=== PATIENT | female | born 1950 | race Caucasian/White ===

== ENCOUNTER → 2019-12-12 08:39 | Outpatient (BNVA) | payer MEDICAID, SELFPAY | PROVIDERS: Family Provider Nurse Practitioner Family; PCP Nurse Practitioner Family; Visit Provider Nurse Practitioner | DX: E55.9 Vitamin D deficiency, unspecified (principal); J44.9 Chronic obstructive pulmonary disease, unspecified; M79.7 Fibromyalgia; Z13.6 Encounter for screening for cardiovascular disorders | CPT/HCPCS: 80053; 80061; 82306; 84443 ==

== ENCOUNTER → 2020-04-18 11:25 | Outpatient (BNVA) | payer MEDICAID, SELFPAY | PROVIDERS: Family Provider Nurse Practitioner Family; PCP Nurse Practitioner; Visit Provider Nurse Practitioner | DX: M79.7 Fibromyalgia (principal); E55.9 Vitamin D deficiency, unspecified; M25.511 Pain in right shoulder; Z79.899 Other long term (current) drug therapy | CPT/HCPCS: 73030; 80053; 82306; 84443; 85025 ==

== ENCOUNTER → 2020-11-26 09:14 | Outpatient (BNVA) | payer MEDICAID, SELFPAY | PROVIDERS: Family Provider Nurse Practitioner Family; PCP Nurse Practitioner; Visit Provider Nurse Practitioner | DX: M79.7 Fibromyalgia (principal); Z13.6 Encounter for screening for cardiovascular disorders; E55.9 Vitamin D deficiency, unspecified; Z79.899 Other long term (current) drug therapy | CPT/HCPCS: 80053; 80061; 84443; 85025 ==

== ENCOUNTER → 2021-07-08 08:21 | Outpatient (BNVA) | payer MEDICAID, SELFPAY | PROVIDERS: Family Provider Nurse Practitioner Family; PCP Nurse Practitioner; Visit Provider Nurse Practitioner | DX: E55.9 Vitamin D deficiency, unspecified (principal); J43.1 Panlobular emphysema; M79.7 Fibromyalgia; R05.9 Cough, unspecified | CPT/HCPCS: 80053; 85025 ==

== ENCOUNTER → 2022-02-24 09:09 | Outpatient (BNVA) | payer MEDICAID, SELFPAY | PROVIDERS: Family Provider Nurse Practitioner Family; PCP Nurse Practitioner; Visit Provider Nurse Practitioner | DX: J43.1 Panlobular emphysema (principal); M79.7 Fibromyalgia; R05.9 Cough, unspecified; E55.9 Vitamin D deficiency, unspecified | CPT/HCPCS: 71046 ==

== ENCOUNTER → 2022-03-24 08:57 | Outpatient (BNVA) | payer MEDICAID, SELFPAY | PROVIDERS: Family Provider Nurse Practitioner Family; PCP Nurse Practitioner; Visit Provider Nurse Practitioner | DX: M79.7 Fibromyalgia (principal); J43.1 Panlobular emphysema; Z13.6 Encounter for screening for cardiovascular disorders; E55.9 Vitamin D deficiency, unspecified | CPT/HCPCS: 80053; 80061; 84443; 85025 ==

== ENCOUNTER → 2022-07-30 09:29 | Outpatient (BNVA) | payer MEDICAID, SELFPAY | PROVIDERS: Family Provider Nurse Practitioner Family; PCP Nurse Practitioner; Visit Provider Nurse Practitioner | DX: M51.36 Other intervertebral disc degeneration, lumbar region (principal); M47.896 Other spondylosis, lumbar region | CPT/HCPCS: 72100; 73502 ==

== ENCOUNTER → 2022-09-03 08:30 | Outpatient (BNVA) | payer MEDICAID, SELFPAY | PROVIDERS: Family Provider Nurse Practitioner Family; PCP Nurse Practitioner; Visit Provider Nurse Practitioner | DX: M79.7 Fibromyalgia (principal); E78.2 Mixed hyperlipidemia; E55.9 Vitamin D deficiency, unspecified | CPT/HCPCS: 80053; 80061; 82306; 84443 ==

== ENCOUNTER → 2023-02-18 09:01 | Outpatient (BNVA) | payer MEDICAID, SELFPAY | PROVIDERS: Family Provider Nurse Practitioner Family; PCP Nurse Practitioner; Visit Provider Nurse Practitioner | DX: J43.1 Panlobular emphysema (principal); G47.00 Insomnia, unspecified; M79.7 Fibromyalgia; J44.9 Chronic obstructive pulmonary disease, unspecified; J44.1 Chronic obstructive pulmonary disease with (acute) exacerbation; E55.9 Vitamin D deficiency, unspecified | CPT/HCPCS: 80053; 82306 ==

== ENCOUNTER 2023-05-29 09:36 | Outpatient (CLI) | payer MEDICAID, SELFPAY ==
--- NOTE | 2023-05-29 10:00 | CT_ITS ---
WS: [id number] CT chest wo con [id number] HISTORY: J43.1 - Panlobular emphysema TECHNIQUE: Axial imaging performed through the thorax. Coronal and sagittal reformats are submitted. All CT scans at [facility] use at least one of these dose optimization techniques: automated exposure control; mA and/or kV adjustment per patient size (includes targeted exams where dose is mat ched to clinical indication); or iterative reconstruction. CONTRAST: None DLP: 461.07 mGy.cm COMPARISON: 11/06/2005 Lungs and central airway: Marked hyperinflation. Centrilobular emphysema. New area of linear atelecta sis or scar in the anterior RIGHT middle lobe. There is a tiny subpleural nodule measuring 5 mm in th e posterior RIGHT lung near the superior major fissure. New irregular spiculation in the LEFT lower l obe measures approximately 9 x 11 mm. This may be focal area of pneumonitis but early neoplasm is not excluded. This is a new finding since the prior study from 2005. Pleura: Normal. No pleural effusion. Heart and pericardium: Mild cardiomegaly. Coronary artery calcifications. Mediastinum and mayi: No adenopathy identified on this unenhanced exam. Vessels: Mildly dilated pulmonary artery. Ectatic mild atherosclerosis aorta. Chest wall and lower neck: No soft tissue masses. Upper abdomen: Very mild thickening of the LEFT adrenal gland. Suspect a small adenoma measuring appr oximately 10 mm. Mild suprarenal aortic atherosclerotic disease. Hepatic granulomata. Splenic granulo kimbrough. Moderate hiatal hernia. Osseous structures: No destructive process. IMPRESSION: 1. Irregular, slightly spiculated nodule LEFT lower lobe measures 9 x 11 mm. Early neoplasm versus s car or pneumonitis. Recommend follow-up chest CT in 3 months. 2. Subsegmental atelectasis in the anterior RIGHT middle lobe can also be evaluated in 3 months on t he follow-up CT. 3. No mediastinal or hilar adenopathy on this unenhanced exam. 4. Mild pulmonary hypertension. 5. Marked centrilobular emphysema. 6. LEFT adrenal 10 mm adenoma.
== END 2023-05-29 09:37 | disposition home or self-care (01) ==
LOC: RAD 09:36
PROVIDERS: PCP Nurse Practitioner; Visit Provider Nurse Practitioner
DX: J98.11 Atelectasis (principal); J43.2 Centrilobular emphysema; R91.1 Solitary pulmonary nodule; F17.210 Nicotine dependence, cigarettes, uncomplicated; D35.02 Benign neoplasm of left adrenal gland; I27.20 Pulmonary hypertension, unspecified
CPT/HCPCS: 71250

== ENCOUNTER → 2023-08-05 08:38 | Outpatient (BNVA) | payer MEDICAID, SELFPAY | PROVIDERS: PCP Nurse Practitioner; Visit Provider Nurse Practitioner | DX: J43.1 Panlobular emphysema (principal); I73.9 Peripheral vascular disease, unspecified; M79.7 Fibromyalgia; G47.00 Insomnia, unspecified; J44.9 Chronic obstructive pulmonary disease, unspecified; F41.8 Other specified anxiety disorders; E78.2 Mixed hyperlipidemia | CPT/HCPCS: 80053; 80061; 84443 ==

== ENCOUNTER 2023-08-31 10:38 | Outpatient (CLI) | payer MEDICAID, SELFPAY ==
--- NOTE | 2023-08-31 11:00 | CT_ITS ---
WS: [id number] CT chest wo con [id number] HISTORY: R91.1 - Solitary pulmonary nodule TECHNIQUE: Axial imaging performed through the thorax. Coronal and sagittal reformats are submitted. All CT scans at [facility] use at least one of these dose optimization techniques: automated exposure control; mA and/or kV adjustment per patient size (includes targeted exams where dose is mat ched to clinical indication); or iterative reconstruction. CONTRAST: Omnipaque 350; 100 mL IV. DLP: 343.36 mGy.cm COMPARISON: 05/29/2023 Lungs and central airway: Hyperexpanded lungs from emphysema. The recently described spiculated nodul e in the LEFT lower lobe has completely resolved. Atelectasis in the RIGHT middle lobe is also nearly completely resolved. There is minimal groundglass attenuation remaining. No new or enlarging pulmona ry mass or nodule. Pleura: Normal. No pleural effusion. Heart and pericardium: Normal size heart with no pericardial effusion. Mediastinum and mayi: No adenopathy. Vessels: Mild pulmonary artery enlargement. Atherosclerosis aorta. Coronary artery calcifications. Chest wall and lower neck: Benign calcification anterior LEFT breast. Upper abdomen: Small hiatal hernia. Mild adrenal thickening. Osseous structures: No destructive process. CT/CT chest wo con [id number] IMPRESSION: 1. Previously described spiculated nodule in the LEFT lower lobe has resolved. 2. Subsegmental atelectasis in the RIGHT middle lobe is nearly resolved. Minim al remaining groundglass attenuation. 3. Pulmonary hypertension.
== END 2023-08-31 10:39 | disposition home or self-care (01) ==
LOC: RAD 10:39
PROVIDERS: PCP Nurse Practitioner; Visit Provider Nurse Practitioner
DX: R91.1 Solitary pulmonary nodule (principal); J98.11 Atelectasis; I27.20 Pulmonary hypertension, unspecified; J43.8 Other emphysema; I25.10 Atherosclerotic heart disease of native coronary artery without angina pectoris; K44.9 Diaphragmatic hernia without obstruction or gangrene
CPT/HCPCS: 71250

== ENCOUNTER → 2023-12-16 09:51 | Outpatient (BNVA) | payer MEDICAID, SELFPAY | PROVIDERS: PCP Nurse Practitioner; Visit Provider Nurse Practitioner | DX: E78.2 Mixed hyperlipidemia (principal); M79.7 Fibromyalgia | CPT/HCPCS: 80053; 82607; 85025 ==

== ENCOUNTER → 2024-06-13 12:54 | Outpatient (BNVA) | payer MEDICAID, SELFPAY | PROVIDERS: PCP Nurse Practitioner; Visit Provider Clinical Nurse Specialist Adult Health | DX: N39.0 Urinary tract infection, site not specified (principal) | CPT/HCPCS: 81000 ==

== ENCOUNTER → 2024-07-12 08:20 | Outpatient (BNVA) | payer MEDICAID, SELFPAY | PROVIDERS: PCP Nurse Practitioner; Visit Provider Nurse Practitioner | DX: E78.2 Mixed hyperlipidemia (principal); J43.1 Panlobular emphysema | CPT/HCPCS: 80053; 80061; 81000; 85025 ==

== ENCOUNTER 2024-08-02 06:44 | Emergency (ER) | payer MEDICAID, SELFPAY ==
[2024-08-02 06:45] VITALS: BP 124/75; PULSE 97; RESP 20; TEMP 37.1; O2SAT 94; BMI 23.5
--- NOTE | 2024-08-02 06:46 | XRR_ITS ---
PROCEDURE INFORMATION: Exam: XR Chest Exam date and time: 08/02/2024 7:01 AM Age: 73 years old Clinical indication: Shortness of breath TECHNIQUE: Imaging protocol: Radiologic exam of the chest. Views: 1 view. COMPARISON: CT chest con [id number] 08/31/2023 10:59 AM FINDINGS: Lungs: The lungs are hyperinflated. No consolidated infiltrates are appreciated. Pleural spaces: Unremarkable. No pleural effusion. No pneumothorax. Heart/Mediastinum: Heart size is normal. There is calcified plaque involving the aorta. Bones/joints: Unremarkable. XR/XR chest 1V portable [id number] IMPRESSION: 1. Lung hyperinflation.
--- NOTE | 2024-08-02 06:46 | ECG_ITS ---
[email or web address] Date: 2024-08-02 Pat Name: Ketty Wisdom Department: Room: Gender: Female Marketing Administrator: : [id number] Requested By: Flaco Morel Order Number: [id number] Adilson MD: Ramonita Goyal M.D. Measurements Intervals Taylor Rate: 96 P: 148 NH: 143 QRS: 134 QRSD: 113 T: 40 QT: 324 QTc: 409 Interpretive Statements SINUS RHYTHM ARM LEADS REVERSED [INVERTED P AND QRS IN I] No previous ECG available for comparison Electronically Signed On 08-02-2024 21:20:46 CDT by Ramonita Goyal M.D. [email or web address]
[2024-08-02 06:59] LABS: ABG PCO2 48.6 mmHg (35-45); ABG PH Result 7.39 (7.35-7.45); Arterial Blood Gas Hematocrit 38.7 % (37-47); Base Excess ABG 3.7 mmol/L (-2.0-2.0); Blood Gas Allen Test Pos; Blood Gas Operator Identificat CG; Blood Gas Sample Site Radial, right; Blood Gas Sample Type Arterial; Carboxyhemoglobin 4.3 %THgb (0.4-20.1); HCO3 ABG 29.5 mmol/L (22-26); HGB O2 Sat 91.2 % (95-100); Methemoglobin 0.2 % (0.4-1.5); Oxygen Device NC; PO2 ABG 71.8 mmHg (80.0-100.0); PO2 FiO2 Ratio Arterial Blood 224; Total Hemoglobin 12.6 g/dL (12-16)
--- NOTE | 2024-08-02 06:59 | W.ED.SOB ---
HPI - SOB/Dyspnea General: Chief Complaint: Shortness of Breath/Dyspnea Stated Complaint: sob Time Seen by Provider: 08/02/24 06:46 History of Present Illness: HPI Narrative: 73-year-old female presents emergency room complaining of shortness of breath with any exertion she denies any chest pain. Patient has a history of COPD she does continue to smoke she uses oxygen with states she only uses it at night does not use it during the day. She denies fever denies productive cough no hemoptysis. No chest pain. She states she has had a cough cold and congestion for the last week she has not seen anybody or taken anything to this point. Associated symptoms: Reports chest congestion; Deny abdominal pain, chest pain or fever(s) Related Data Home Medications ?Medication ?Instructions ?Recorded ?Confirmed calcium 600 mg (as 1 tab PO DAILY 08/02/24 08/02/24 carbonate)-vitamin D3 5 mcg (200 unit) tablet magnesium oxide 800 mg PO BEDTIME 08/02/24 08/02/24 vitamins A,C,N-ucae-atrnei 4,296 1 cap PO BID 08/02/24 08/02/24 mcg-226 mg-90 mg capsule Previous Rx's ?Medication ?Instructions ?Recorded albuterol sulfate 2.5 mg/3 mL 2.5 mg (3 mL) inhalation Q4H PRN 07/12/24 (0.083 %) solution for nebulization shortness of breath or wheezing #180 mL cholestyramine (with sugar) 4 gram 4 g PO TID PRN stooling #378 grams 07/12/24 oral powder (Questran) cilostazol 100 mg tablet 100 mg PO BID #60 tabs 07/12/24 meloxicam 15 mg tablet 15 mg PO DAILY #30 tabs 07/12/24 methocarbamol 750 mg tablet 750 mg PO TID #90 tabs 07/12/24 mirtazapine 15 mg tablet (Remeron) 15 mg PO .with supper #30 tabs 07/12/24 mometasone-formoterol HFA 100 2 puff inhalation BID #13 grams 07/12/24 mcg-5 mcg/actuation aerosol inhaler (Dulera) nortriptyline 50 mg capsule 50 mg PO BID #60 caps 07/12/24 tiotropium bromide 2.5 2 puff inhalation DAILY #4 grams 07/12/24 mcg/actuation mist for inhalation (Spiriva Respimat) trazodone 100 mg tablet 100 mg PO .at bedtime sleep #30 07/12/24 tabs methylprednisolone 4 mg tablets in See Rx Instructions PO .COMPLEX 08/02/24 a dose pack (Medrol (Akbar)) #21 ea Allergies Allergy/AdvReac Type Severity Reaction Status Date / Time venlafaxine (From Effexor) AdvReac Unknown NAUSEA Verified 07/12/24 08:00 Review of Systems Const: Denies: fever(s) or chills Card: Denies: chest pain Resp: Reports: dyspnea, non-productive cough, wheezing and chest congestion GI: Denies: abdominal pain : Denies: dysuria, urinary frequency or urinary urgency Musc: Denies: neck pain or back pain Skin/Breast: Denies: rash PFSH ED PFSH: Medical History Statin intolerance Personal history of nicotine dependence Primary localized osteoarthrosis of multiple sites Anxiety Chronic obstructive pulmonary disease, unspecified Cigarette smoker Other intervertebral disc degeneration, lumbar region Fibromyalgia Vitamin D deficiency, unspecified Surgical History History of appendectomy History of cholecystectomy History of hysterectomy for cancer Family History Other Depression Hypertension Social History Smoking and tobacco/nicotine status: current every day tobacco/nicotine user Second hand smoke exposure: Yes Alcohol intake: former Substance/Drug Use: unknown Adopted: No Caregiver/support person: No Lives independently: Yes Household members: family and children Housing: House Marital status: Single Number of children: 3 service: No Current occupational status: unemployed Pets and animals: Yes Do you think of yourself as: Straight/Heterosexual Current gender identity: Female Physical Exam Const: GENERAL APPEARANCE: cooperative ORIENTATION/CONSCIOUSNESS: Yes awake, Yes oriented to person, Yes oriented to place and Yes oriented to time HENMT: COMMON NORMALS: normocephalic, atraumatic and hearing grossly normal bilaterally HEAD & SCALP: normocephalic and atraumatic Resp: AUSCULTATION: rhonchi, wheezes and diminished lung sounds Cardio: COMMON NORMALS: regular rate, regular rhythm and No murmurs present (Cardio) RATE: regular rate RHYTHM: regular rhythm GI: COMMON NORMALS: Soft to palpation and No hepatosplenomegaly present AUSCULTATION: Yes normoactive bowel sounds PALPATION: Yes Soft to palpation, No Tenderness to palpation present (GI), No Guarding due to palpation present (GI) and Yes No hepatosplenomegaly present Extremity: COMMON NORMALS: normal to inspection, capillary refill normal, no clubbing, cyanosis or edema, no calf tenderness and no pedal edema Neuro: SENSORIUM/ORIENTATION: Yes oriented to person, Yes oriented to place and Yes oriented to time Skin: COMMON NORMALS: no rashes or lesions noted GENERAL SKIN EXAM: no rashes or lesions noted Course Vital Signs: Vital signs: Vital Signs Temperature 98.7 F 08/02/24 06:45 Pulse Rate 91 08/02/24 07:30 Respiratory Rate 20 H 08/02/24 07:30 Blood Pressure 145/69 08/02/24 07:21 Pulse Oximetry 93 08/02/24 07:30 Oxygen Delivery Me thod Nasal Cannula 08/02/24 07:30 Oxygen Flow Rate 3 08/02/24 07:30 MDM - SOB/Dyspnea Medical Decision Making Slight improvement of breathing with oxygen and nebulizers and steroids. Patient is anxious to go home. Reviewed findings with her she does not have pneumonia which is her biggest concern. I encouraged her to stop smoking as that will further accelerate her lung function decline. She also should use your oxygen continuously at 2 L/min she is only been using it at night. She wants to get something it is more portable to maintain her activity level around the home encouraged her to talk to her primary care doctor they can get her changed to a concentrator. Finally we will discharge her home with a steroid taper. Continue her other medications as previously prescribed. Medical Records I reviewed the patient's medical records. Lab Data I reviewed the patient's lab results. 08/02/24 07:11 08/02/24 07:11 Labs/Radiology: Radiology Impressions Chest X-Ray 08/02/24 06:46 IMPRESSION: 1. Lung hyperinflation. Laboratory Results WBC 9.32 10^3/uL (3.29-11.43) 08/02/24 07:11 RBC 4.12 10^6/uL (3.85-5.65) 08/02/24 07:11 Hgb 12.50 g/dL (11.27-16.99) 08/02/24 07:11 Hct 39.2 % (36-47) 08/02/24 07:11 MCV 95.1 fl (85-98) 08/02/24 07:11 MCH 30.3 pg (27-33) 08/02/24 07:11 MCHC 31.9 g/dL (30-55) 08/02/24 07:11 RDW 12.1 % (12.1-15.1) 08/02/24 07:11 Plt Count 210 10^3/cmm (157-399) 08/02/24 07:11 MPV 9.9 fL (7.4-10.4) 08/02/24 07:11 Neut % (Auto) 83.9 % 08/02/24 07:11 Lymph % (Auto) 9.4 % 08/02/24 07:11 Shasta % (Auto) 5.8 % 08/02/24 07:11 Eos % (Auto) 0.3 % 08/02/24 07:11 Baso % (Auto) 0.2 % 08/02/24 07:11 Neut # (Auto) 7.81 10^3/uL (1.8-7.7) H 08/02/24 07:11 Lymph # (Auto) 0.9 10^3/uL (0.8-4.8) 08/02/24 07:11 [place]asta # (Auto) 0.5 10^3/uL (0.2-0.9) 08/02/24 07:11 Eos # (Auto) 0.0 10^3/uL (0.0-0.8) 08/02/24 07:11 Baso # (Auto) 0.0 10^3/uL (0.0-0.1) 08/02/24 07:11 Nucleated RBC % (auto) 0 % 08/02/24 07:11 Nucleated RBCs # 0.0 /100WBC 08/02/24 07:11 Specimen Type Arterial 08/02/24 06:50 Sample Site Radial, right 08/02/24 06:50 ABG pH 7.39 (7.35-7.45) 08/02/24 06:50 ABG pCO2 48.6 mmHg (35-45) H 08/02/24 06:50 ABG pO2 71.8 mmHg (80.0-100.0) L 08/02/24 06:50 ABG PO2/FiO2 Ratio 224 08/02/24 06:50 ABG HCO3 29.5 mmol/L (22-26) H 08/02/24 06:50 ABG Base Excess 3.7 mmol/L (-2.0-2.0) H 08/02/24 06:50 Dima Test Pos 08/02/24 06:50 Hematocrit 38.7 % (37-47) 08/02/24 06:50 Hgb O2 Saturation 91.2 % (95-100) L 08/02/24 06:50 Carboxyhemoglobin 4.3 %THgb (0.4-20.1) 08/02/24 06:50 Methemoglobin 0.2 % (0.4-1.5) L 08/02/24 06:50 Total Hemoglobin 12.6 g/dL (12-16) 08/02/24 06:50 O2 Delivery Device Nc 08/02/24 06:50 O2 Liters/Min 3.0 % 08/02/24 06:50 FiO2 32.0 % 08/02/24 06:50 Product Development Actuary ID Cg 08/02/24 06:50 Sodium 136 mmol/L (136-145) 08/02/24 07:11 Potassium 4.4 mmol/L (3.5-5.1) 08/02/24 07:11 Chloride 97 mmol/L (98-107) L 08/02/24 07:11 Carbon Dioxide 29 mmol/L (22-29) 08/02/24 07:11 Anion Gap 14.4 (5-19) 08/02/24 07:11 BUN 6 mg/dL (8-23) L 08/02/24 07:11 Creatinine 0.5 mg/dL (0.5-0.9) 08/02/24 07:11 GFR Calculation Not Reportable 08/02/24 07:11 Glucose 105 mg/dL (65-115) 08/02/24 07:11 Calculated Osmolality 280 mOsm/kg (285-295) L 08/02/24 07:11 Calcium 9.3 mg/dL (8.5-10.5) 08/02/24 07:11 Total Bilirubin 0.2 mg/dL (0.15-1.2) 08/02/24 07:11 AST 10 U/L (0-32) 08/02/24 07:11 ALT 6 U/L (0-33) 08/02/24 07:11 Alkaline Phosphatase 84 U/L (35-105) 08/02/24 07:11 Total Protein 7.1 g/dL (6.6-8.7) 08/02/24 07:11 Albumin 3.9 g/dL (3.5-5.2) 08/02/24 07:11 Globulin 3.2 g/dL (1.3-4.6) 08/02/24 07:11 Influenza A (PCR) Negative (Negative) 08/02/24 06:55 Influenza Type B (PCR) Negative (Negative) 08/02/24 06:55 RSV (PCR) Negative (Negative) 08/02/24 06:55 SARS-CoV-2 (PCR) Negative (Negative) 08/02/24 06:55 All radiology interpretation(s) finalized by discharge Discharge Plan Discharge Patient Disposition: Home Clinical Impression: Acute exacerbation of chronic obstructive airways disease Condition: Stable Prescriptions: New methylprednisolone [Medrol (Akbar)] 4 mg tablets,dose pack See Rx Instructions .ROUTE .COMPLEX Qty: 21 0RF Rx Instructions: orally per package directions No Action albuterol sulfate 2.5 mg /3 mL (0.083 %) solution for nebulization 2.5 mg INHALATION Q4H PRN (Reason: shortness of breath or wheezing) Qty: 180 2RF cholestyramine (with sugar) [Questran] 4 gram powder 4 g PO TID PRN (Reason: stooling) Qty: 378 0RF cilostazol 100 mg tablet 100 mg PO BID Qty: 60 2RF meloxicam 15 mg tablet 15 mg PO DAILY Qty: 30 2RF methocarbamol 750 mg tablet 750 mg PO TID Qty: 90 2RF mirtazapine [Remeron] 15 mg tablet 15 mg PO .with supper Qty: 30 2RF Dulera 100-5 mcg/actuation HFA aerosol inhaler 2 puff inhalation BID Qty: 13 2RF nortriptyline 50 mg capsule 50 mg PO BID Qty: 60 2RF Spiriva Respimat 2.5 mcg/actuation mist 2 puff inhalation DAILY Qty: 4 2RF trazodone 100 mg tablet 100 mg PO .at bedtime sleep Qty: 30 2RF calcium carbonate-vitamin D3 [Calcium + D] 600 mg-5 mcg (200 unit) Tablet 1 tab PO DAILY magnesium oxide 400 mg magnesium tablet 800 mg PO BEDTIME Rx Instructions: OTC Vision Formula (I-Z-[id number]) 4,296 mcg-226 mg-90 mg Capsule 1 cap PO BID Discharge Orders: Discharge ED (Routine); Ordered 08/02/24 Ordered By: Flaco Mcgrath Referrals: Boy Ortiz, BRAND MARKETING COORDINATOR-C [Primary Care Provider] - Discharge Diet: Usual diet Discharge Activity: Resume usual activity Patient Instructions: Opioid Safety, Pain Management Activity Restrictions/Additional Instructions: Thank you for choosing [facility] for your healthcare needs today. It is very important that you follow up as instructed or that you return to the Emergency Department should you have concerns or if your condition changes or worsens in any way. You are seen emergency room with complaints of shortness of breath. Chest x-ray shows hyperinflation consistent with your COPD. There is no sign of pneumonia. Swabs for COVID flu and RSV were negative. Your blood gas is also consistent with your chronic COPD. Recommend you wear your oxygen at 2 L/min continuously. Use your albuterol as needed for relief of symptoms. You should stop smoking. Use your other prescribed previously prescribed medications as prescribed. You can follow-up with your primary care doctor to discuss changing your oxygen source to try to maintain mobility. Print Language: Occitan Coding Level of Care Code ED Software Tools Developer for Danny Blackmon
[2024-08-02 07:21] VITALS: BP 145/69; PULSE 94; RESP 24; O2SAT 94
[2024-08-02 07:22] LABS: Basophils % 0.2 %; Eosinophils % 0.3 %; Hematocrit 39.2 % (36-47); Lymphocytes # 0.9 10^3/uL (0.8-4.8); Lymphocytes % 9.4 %; Mean Corpuscular HGB Conc 31.9 g/dL (30-55); Mean Corpuscular Hemoglobin 30.3 pg (27-33); Mean Corpuscular Volume 95.1 fl (85-98); Mean Platelet Volume 9.9 fL (7.4-10.4); Monocytes # 0.5 10^3/uL (0.2-0.9); Monocytes % 5.8 %; Neutrophils # 7.81 10^3/uL (1.8-7.7); Neutrophils % 83.9 %; Nucleated Red Blood Cells % 0 %; Platelet Count 210 10^3/cmm (157-399); Red Blood Count 4.12 10^6/uL (3.85-5.65); Red Cell Distribution Width 12.1 % (12.1-15.1); White Blood Count 9.32 10^3/uL (3.29-11.43)
[2024-08-02] MEDS: ipratropium-albuterol 3 mL Neb INHALATION (07:27)
[2024-08-02 07:30] VITALS: PULSE 91; RESP 20; O2SAT 93
[2024-08-02 07:32] LABS: Alanine Aminotransferase 6 U/L (0-33); Albumin Level 3.9 g/dL (3.5-5.2); Alkaline Phosphatase 84 U/L (35-105); Anion Gap 14.4 (5-19); Aspartate Amino Transferase 10 U/L (0-32); Blood Urea Nitrogen 6 mg/dL (8-23); Calcium 9.3 mg/dL (8.5-10.5); Carbon Dioxide 29 mmol/L (22-29); Chloride 97 mmol/L (98-107); Creatinine Clr Calc Pharmacy 64.3984; Globulin 3.2 g/dL (1.3-4.6); Glucose 105 mg/dL (65-115); Osmolality Calculated 280 mOsm/kg (285-295); Potassium 4.4 mmol/L (3.5-5.1); Sodium 136 mmol/L (136-145); Total Bilirubin 0.2 mg/dL (0.15-1.2); Total Protein 7.1 g/dL (6.6-8.7)
[2024-08-02 07:58] LABS: Influenza A NEGATIVE (Negative); Influenza B NEGATIVE (Negative); Respiratory Syncytial Virus Ce NEGATIVE (Negative); SARS-CoV-2 PCR NEGATIVE (Negative)
[2024-08-02 08:31] VITALS: BP 126/76; PULSE 95; O2SAT 93
== END 2024-08-02 08:32 | disposition home or self-care (01) ==
PROVIDERS: Emergency Provider Family Medicine; PCP Nurse Practitioner
DX: J44.1 Chronic obstructive pulmonary disease with (acute) exacerbation (principal); Z11.52 Encounter for screening for COVID-19; Z72.0 Tobacco use
CPT/HCPCS: 36415; 36600; 71045; 80053; 82805; 85025; 87637; 93005; 94640; 99285; J9999

== ENCOUNTER → 2024-10-26 08:21 | Outpatient (BNVA) | payer MEDICAID, SELFPAY | PROVIDERS: PCP Nurse Practitioner; Visit Provider Nurse Practitioner | DX: E55.9 Vitamin D deficiency, unspecified (principal); E78.2 Mixed hyperlipidemia | CPT/HCPCS: 80053; 82306; 82607; 84425 ==